=== PATIENT | male | born 1955 | race Caucasian/White ===

== ENCOUNTER → 2018-03-12 | Outpatient (CLI) | payer BC ==
--- NOTE | 2018-03-12 14:38 | Diagnostic Imaging Report ---
Abdominal ultrasound. History: Right upper quadrant pain Comparison: None Discussion: Transverse and longitudinal images of the abdomen were obtained demonstrating a liver of normal size and echogenicity measuring 15.2 cm in length. The portal vein is patent with hepatopetal flow and is within normal limits measuring 10 mm in diameter. The biliary tree is within normal limits with the common bile duct measuring 5 mm in diameter. The gallbladder is normal without evidence of stones, wall thickening, or pericholecystic fluid. The sonographic Levin's sign was negative. The kidneys are normal in size and echogenicity bilaterally without evidence of hydronephrosis, stones, or mass. The right kidney measures 12.2 x 5.5 x 6.9 cm and the left kidney measures 12.6 x 6.4 x 5.1 cm. There is an interpolar renal cyst on the right measuring maximal dimension of 7 cm. Adjacent medial cyst measures 2.7 cm. The spleen is normal in size and appearance measuring 11.7 x 3.6 x 4.6 cm. The pancreatic <head and body> are visualized and are normal in appearance. The abdominal aorta is not well visualized. The IVC is patent. There is no evidence of free fluid. IMPRESSION: There are two right renal cysts. Signed by: Dr. Valentino Hilton DO on 03/12/2018 2:35 PM
== END ==
LOC: US 12:39
PROVIDERS: ATTEND Internal Medicine Gastroenterology
DX: Z12.11 Encounter for screening for malignant neoplasm of colon (principal); R10.11 Right upper quadrant pain; R11.2 Nausea with vomiting, unspecified; I10 Essential (primary) hypertension; E66.9 Obesity, unspecified; Z71.3 Dietary counseling and surveillance
CPT/HCPCS: 76700